=== PATIENT | male | born 1965 | race African-American/Black ===

== ENCOUNTER 2019-11-05 17:46 | Emergency (ER) | payer OTHER ==
[~2019-11-05] VITALS: Ht 167.6 cm; Wt 92.1 kg
[~2019-11-05 17:46] MED LIST: ALBUTEROL2.5 MG/31 INH; MEDROLDOSEPACK PO; PROAIR HFA8.5 GM INH
[2019-11-05] MEDS ORDERED: LISINOPRIL2.5 MG PO (18:15)
[2019-11-05] MEDS ORDERED: LIPITOR 20 MG T20 M1 PO (18:15)
[2019-11-05] MEDS ORDERED: OMEPRAZOLE 20 M20 M1 PO (18:15)
[2019-11-05] MEDS ORDERED: SYMBICORT80 MCG/4.1 INH (18:16)
[2019-11-05 20:30] LABS: ABSOLUTE EOSINOPHILS 0.3 thou/uL (0.0-0.7); ABSOLUTE LYMPHOCYTES 1.4 thou/uL (0.8-5.3); ABSOLUTE MONOCYTES 0.8 thou/uL (0.0-1.2); ABSOLUTE NEUTROPHILS 2.2 thou/uL (1.6-8.1); BASOPHILS 0.8 %; EOSINOPHILS 6.3 %; HEMATOCRIT 41.3 % (42.0-52.0); HEMOGLOBIN 13.5 gm/dL (14.0-18.0); MCH 27.3 pg (26.0-34.0); MCHC 32.7 g/dL (28.0-37.0); MCV 83.6 fL (80.0-100.0); MONOCYTES 16.2 %; MPV 7.9 fl. (7.2-11.1); NUCLEATED RBCS 0 /100WBC; PLATELET COUNT* 240 thou/uL (150-400); POLYS 47.7 %; RBC 4.94 mil/uL (4.50-6.00); RDW-CV 14.5 % (10.5-14.5); WBC 4.7 thou/uL (4.0-11.0)
[2019-11-05 20:37] LABS: CALCIUM 8.4 mg/dL (8.5-10.1); CREATININE 1.3 mg/dL (0.6-1.3); POTASSIUM 3.6 mmol/L (3.5-5.1)
[2019-11-05 20:43] LABS: APTT 28.8 Seconds (25.0-31.3); PROTIME 10.2 Seconds (9.20-11.50)
[2019-11-05 20:51] LABS: ALBUMIN 3.2 g/dL (3.4-5.0); CK-MB MASS 0.6 ng/mL (<0.5-3.6); MAGNESIUM 1.7 mg/dL (1.8-2.4); TOTAL BILIRUBIN 0.2 mg/dL (<0.1-1.0)
[2019-11-05 21:22] VITALS: BP 145/97
--- NOTE | 2019-11-06 12:35 | EKG ---
[place] [address] ELECTROCARDIOGRAM REPORT Name: MILTON WEST Room: [facility]#: [id number] Admission: 11/05/19 Attend Phys: Discharge: 11/05/19 Date of : 63 Report #: [id number] THIS REPORT FOR: //name// [facility] ED Test Date: 2019-11-05 Test Time: 17:52:29 Pat Name: MILTON WEST Department: Room: Gender: M [employer] Operator: [facility] : 1965 Requested By: Zohaib Triplett Order Number: [id number] MD: Rodriguez Lizama Measurements Intervals [place] Rate: 79 P: 35 KS: 142 QRS: 3 QRSD: 85 T: 28 QT: 369 QTc: 424 Interpretive Statements Sinus rhythm Abnormal R-wave progression, early transition Compared to ECG 02/28/2015 22:13:12 Sinus tachycardia no longer present Electronically Signed On 11-06-2019 12:34:36 [employer]AND ATT[employer] by Rodriguez Lizama [email or web address] <ELECTRONICALLY SIGNED> By: Rodriguez Lizama MD, [facility] 11/06/19 1234 1751 51 Rodriguez Lizama MD, FACC /EPI
== END 2019-11-05 21:23 | disposition home or self-care (01) ==
LOC: M.ERS 17:46
PROVIDERS: Family Medicine
DX: R07.89 Other chest pain (principal); E78.5 Hyperlipidemia, unspecified; I10 Essential (primary) hypertension